=== PATIENT | male | born 1955 | race Caucasian/White ===

== ENCOUNTER 2016-12-27 12:41 | Emergency (ER) | payer OTHER ==
[2016-12-27 16:52] VITALS: BP 131/76
== END 2016-12-27 16:42 | disposition home or self-care (01) ==
LOC: ED 12:41
DX: K40.90 Unilateral inguinal hernia, without obstruction or gangrene, not specified as recurrent (principal); K44.9 Diaphragmatic hernia without obstruction or gangrene; K42.9 Umbilical hernia without obstruction or gangrene; N28.1 Cyst of kidney, acquired; K70.31 Alcoholic cirrhosis of liver with ascites; M47.896 Other spondylosis, lumbar region